=== PATIENT | female | born 1940 | race Caucasian/White ===

== ENCOUNTER 2016-11-21 02:47 | Inpatient (IN) ==
[2016-11-21] MEDS ORDERED: Ipratropium/Albuterol Neb 3 ML ONE (02:52)
[2016-11-21] MEDS ORDERED: Ipratropium/Albuterol Neb 3 ML IH ONE (02:54)
--- NOTE | 2016-11-21 03:08 | Emergency Department Note ---
Disposition Clinical Impression: Acute exacerbation of chronic obstructive airways disease Disposition: Admitted As Inpatient Condition: Good Time of Disposition: 04:21 General Adult HPI - General Stated complaint: reji Time Seen by Provider: 11/21/16 02:54 Source: patient Limitations: no limitations Nursing Notes Reviewed: Yes Vital Signs Reviewed: Yes - History of Present Illness HPI Narrative: 76-year-old female with past medical history of COPD without home oxygen presents with abrupt onset of wheezing and shortness of breath similar to prior COPD exacerbations. She states that she has had mild nonproductive cough over the last few days, but in the midst of a coughing spell became dyspneic and started wheezing. Wheezing did not resolve after the coughing resolved. No significant improvement after home beta agonist. Patient denies any lightheadedness, fever, confusion, headache, chest pain, abdominal pain, nausea or vomiting, change in urination or bowel movements. She feels that she has mild edema at her ankles that is worse with standing. She denies history of prior intubation, has been seen in the hospital multiple times for COPD. Pain Scale: 0 - Related Data Home Medications Medication Instructions Recorded Confirmed Albuterol Neb [Proventil Neb] 2.5 mg IH TID 05/26/15 05/26/15 Atorvastatin [Lipitor] 20 mg PO HS 05/26/15 05/26/15 Budesonide/Formoterol 80/4.5 2 puff IH BID 05/26/15 05/26/15 [Symbicort 80/4.5] Calcium Carbonate/Vitamin D3 1 each PO DAILY 05/26/15 05/26/15 [Calcium 500-Vit D3 400 Tablet] Cholestyramine/Aspartame 4 gm PO DAILY 05/26/15 05/26/15 [Cholestyramine Light Packet] FLUoxetine HCl [Prozac] 20 mg PO DAILY 05/26/15 05/26/15 Lansoprazole [Prevacid] 30 mg PO DAILY 05/26/15 05/26/15 Melatonin [Melatin] 3 mg PO HS 05/26/15 05/26/15 Tiotropium [Spiriva] 18 mcg IH DAILY 05/26/15 05/26/15 Previous Rx's Medication Instructions Recorded Levofloxacin [Levaquin] 500 mg PO DAILY #7 tablet 05/29/15 Azithromycin [Azithromycin 6-Tab 250 mg PO PER PKG DI #6 tab 02/02/16 Pack] predniSONE [PredniSONE] 40 mg PO DAILY #4 tablet 02/02/16 traMADol [Ultram] 50 mg PO TID #20 tablet 03/29/16 Benzonatate [Tessalon] 200 mg PO TID PRN #30 capsule 10/04/16 Levofloxacin [Levaquin] 500 mg PO DAILY #10 tablet 10/04/16 predniSONE [PredniSONE] 40 mg PO DAILY #10 tablet 10/04/16 Azithromycin [Azithromycin 6-Tab 250 mg PO PER PKG DI #6 tab 10/24/16 Pack] Guaifenesin [Guaifenesin ER] 600 mg PO BID 7 Days 10/24/16 PredniSONE [Deltasone] 40 mg PO DAILY #5 tablet 10/24/16 Allergies Allergy/AdvReac Type Severity Reaction Status Date / Time No Known Allergies Allergy Verified 10/24/16 04:47 All systems ED: reviewed and negative except as stated. Past Medical History - Past Medical History Attestation: Yes The following information was validated with the patient. 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 Cardiovascular Cardiovascular exam: Present: regular rate, normal rhythm, normal heart sounds - Abdominal Exam Abdominal exam: Present: soft, Non-Tender. Absent: tenderness, distention, guarding, rebound, rigidity - Extremities Exam Extremities exam: No pedal edema. Full range of motion. - Back Exam Back exam: Present: normal inspection, full ROM. Absent: tenderness, CVA tenderness (R), CVA tenderness (L) - Neurological Exam Neurological exam: Present: alert, oriented X3, CN II-XII intact - Psychiatric Psychiatric exam: Present: normal affect, normal mood - Skin Skin exam: Present: warm, dry, intact, normal color - General General appearance: alert, in no apparent distress Course - Reevaluation(s) Reevaluation #1: Chest x-ray negative for pneumonia. Symptoms improving after 3 DuoNeb, but patient was 84% on room air on arrival and does not have home O2. She is 92% on 3 L by nasal cannula at this time. Work of breathing has improved and patient is now able to speak 5-6 word sentences. Initially, she could only speak in 1-2 word sentences. Solu-Medrol was administered. Hospitalist was paged. Time: 03:51 Reevaluation #2: Accepted by Clarence. Time: 04:20 Vital Signs Temperature 98.3 F 11/21/16 02:53 Pulse Rate 154 11/21/16 02:53 Respiratory Rate 28 11/21/16 02:53 Blood Pressure 154/88 11/21/16 02:53 O2 Sat by Pulse Oximetry 84 11/21/16 02:53 Temperature 98.3 F 11/21/16 02:53 Pulse Rate 92 11/21/16 03:45 Respiratory Rate 20 11/21/16 04:55 Blood Pressure 139/61 11/21/16 04:55 O2 Sat by Pulse Oximetry 93 11/21/16 03:45 Oxygen Delivery Oxygen Delivery Nasal Cannula Medical Decision Making - Lab Data Result diagrams: 11/21/16 03:05 11/21/16 03:05 Lab Results 11/21/16 11/21/16 11/21/16 Range/Units 03:05 03:05 03:05 WBC 9.0 (4.3-11.1) K/mcL RBC 4.64 (3.82-4.97) M/mcL Hgb 13.3 (11.5-15.4) g/dL Hct 42.5 (35.3-44.9) % MCV 91.6 (83.0-100.0) fL MCH 28.7 (28.0-33.3) pg MCHC 31.3 L (31.6-35.5) g/dL RDW 13.3 (11.5-14.5) % Plt Count 175 (140-400) K/mcL MPV 11.5 (9.4-12.4) fL Immature Gran % 0.3 (0-4) % Seg Neutrophils % 67.1 % Lymphocytes % 16.7 % Monocytes % 7.6 % Eosinophils % 7.7 % Basophils % 0.6 % Neutrophils # 6.0 (1.6-8.9) K/mcL Lymphocytes # 1.5 (0.6-4.6) K/mcL Monocytes # 0.7 (0.0-1.3) K/mcL Eosinophils # 0.7 H (0.0-0.6) K/mcL Basophils # 0.1 (0.0-0.2) K/mcL Sodium 142 (136-145) mEq/L Potassium 3.8 (3.5-4.5) mEq/L Chloride 103 (98-109) mEq/L Carbon Dioxide 28 (19-29) mEq/L BUN 13 (7-20) mg/dL Creatinine 0.86 (0.57-1.11) mg/dL Est GFR ( Amer) > 60 (> 60) Est GFR (Non-Af Amer) > 60 (> 60) BUN/Creatinine Ratio 15 (6-26) Glucose 211 H (70-99) mg/dL Calculated Osmolality 300 (280-300) Calcium 10.0 (8.6-10.8) mg/dL Troponin I 0.01 (0-0.03) ng/mL - EKG Data EKG #1 EKG attestation: Yes I reviewed and interpreted this EKG. EKG results narrative: EKG shows sinus rhythm at 97 with normal axis and intervals. No ST elevation. There is some limitation with motion artifact without definite ST depression. No definite pathologic Q waves. No definite change when compared with 2016. Attestation Statement - Attestation Attestation: I, Jose Napier, examined this patient and my medical decision-making was reviewed with the BUTTON GRADER/PA/Advanced Practice Nurse/Resident Physician. I agree with the documented findings, disposition and treatment plan as described except to the extent set forth below. 76-year-old female presents with concerns of shortness of breath. Patient states this does feel similar to her previous COPD exacerbations. Patient reports cough that is nonproductive. Denies fever, chills, nausea, vomiting. Patient denies chest pain. On physical examination she has diffuse wheezing bilaterally and is tachycardic. She is satting 84% on room air on initial evaluation. O2 saturation improved with 3 L up to 94%. Patient was given a. All breathing treatments emergency department with significant improvement of symptoms. She is still dyspneic with conversation however and she will be admitted to the hospital for further care and evaluation. She was given [facility] hospital emergency department prior to admission.
[2016-11-21 03:12] LABS: Basophils # 0.1 K/mcL (0.0-0.2); Basophils % 0.6 %; Eosinophils # 0.7 K/mcL (0.0-0.6); Eosinophils % 7.7 %; Hematocrit 42.5 % (35.3-44.9); Hemoglobin 13.3 g/dL (11.5-15.4); Immature Granulocytes % 0.3 % (0-4); Lymphocytes # 1.5 K/mcL (0.6-4.6); Lymphocytes % 16.7 %; Mean Corpuscular HGB Conc 31.3 g/dL (31.6-35.5); Mean Corpuscular Hemoglobin 28.7 pg (28.0-33.3); Mean Corpuscular Volume 91.6 fL (83.0-100.0); Mean Platelet Volume 11.5 fL (9.4-12.4); Monocytes # 0.7 K/mcL (0.0-1.3); Monocytes % 7.6 %; Platelet Count 175 K/mcL (140-400); Red Blood Count 4.64 M/mcL (3.82-4.97); Red Cell Distribution Width 13.3 % (11.5-14.5); Segmented Neutrophils % 67.1 %
[2016-11-21] MEDS ORDERED: methylPREDNISolone 125 MG/2 ML VIAL IVP ONE (03:14)
[2016-11-21 03:25] LABS: BUN/Creatinine Ratio 15 (6-26); Blood Urea Nitrogen 13 mg/dL (7-20); Carbon Dioxide 28 mEq/L (19-29); Chloride 103 mEq/L (98-109); Glucose 211 mg/dL (70-99); Osmolality,Calculated 300 (280-300); Potassium 3.8 mEq/L (3.5-4.5); Sodium 142 mEq/L (136-145); eGFR For African Americans > 60 (> 60); eGFR For Non-African Americans > 60 (> 60)
[2016-11-21] MEDS ORDERED: Albuterol 2.5 MG/3 ML NEBULIZER IH PRN ×2 (06:18→07:36)
[2016-11-21] MEDS ORDERED: *HR* HYDROmorphone (PF) 1 MG/ML SYRINGE IVP PRN (07:35)
[2016-11-21] MEDS ORDERED: Ondansetron 4 MG/2 ML VIAL IVP PRN (07:35)
[2016-11-21] MEDS ORDERED: Acetaminophen 325 MG TABLET PO PRN (07:35)
[2016-11-21] MEDS ORDERED: *HR* HYDROcodone/Acet 5/325 mg TABLET PO PRN (07:35)
[2016-11-21] MEDS ORDERED: Naloxone 0.4 MG/ML INJ IVP PRN (07:35)
[2016-11-21] MEDS ORDERED: D5% in Water 1,000 ML IVC PRN (07:37)
[2016-11-21] MEDS ORDERED: *HR* Dextrose 50 % in Water (Syg) 50 ML SYRINGE IVP PRN (07:37)
[2016-11-21] MEDS ORDERED: Dextrose Gel 15 GM PO PRN ×2 (07:37)
--- NOTE | 2016-11-21 08:19 | Internal Med History&Physical ---
Date of Encounter: 11/21/16 Time of Encounter: 08:18 Assessment and Plan (1) Acute respiratory failure Current visit: Yes Status: Acute Secondary to COPDE Continue O2 supplement by [place] Qualifiers: Respiratory failure complication: hypoxia Qualified Code(s): J96.01 - Acute respiratory failure with hypoxia (2) Acute exacerbation of chronic obstructive airways disease Current visit: Yes Status: Acute Continue duonebs, albuterol q2prn, prednisone Start doxycycline, patient just finished a course of azithromycin Continue O2 send BNP as patient reports leg swelling (3) Diabetes mellitus Current visit: Yes Status: Chronic FS ACHS Send A1C Sliding scale insulin Qualifiers: Diabetes mellitus type: type 2 Diabetes mellitus complication status: without complication Diabetes mellitus intermediate insulin use: without intermediate designer use Qualified Code(s): E11.9 - Type 2 diabetes mellitus without complications (4) Anxiety Current visit: Yes Status: Chronic Resume home meds when confirmed Internal Medicine - H&P: HPI Chief complaint: I couldn't breathe Admitted From: Home Plans for Post Hospital Care: Home History of present illness: Ms. Poole is a 76 year old female presented to the ER wih complains of shortness of breath not relieved by her home medications She is a known history of COPD, with multiple ER presentations and admissions Reports a history of cough with white phlegm,unchanged from her chronic cough but with more persistent and severity. Associated wheezing, not relieved by using her home inhalers. Hence her presentation She denies URI symptoms, rhinorrhea, sick contacts, fever or chills, chest pain , orthopnea. She however reports ankle swelling which she started noticing since yesterday, dependent and resolves when she lays down. She denies abdominal pain, denies early satiety. She denies constipation or diarrhea, she denies changes in urinary habits She denies recent travels On presentation to the ER, she was found to be hypoxic to 84% , improved with nasal cannula, she is not on home O2, she was also diffusely wheezing, and received multiple treatments and steroids At time of review, she is in mild distress, still wheezing, and on O2 by nasal cannula CXR was unremarkable for any infiltrates, CBC and Chem unremarkable She will be admitted and managed for acute hypoxic respiratory failure secondary to COPDE and acute bronchitis She has a PMH of anxiety, DM, HLD Past Med Surg Social Fam HX - Past Medical History Medical history: arthritis, cancer, COPD, diabetes, GERD, hyperlipidemia, osteoporosis, other Psychiatric history: anxiety, depression - Past Surgical History Surgical History: cancer surgery, cholecystectomy, other - Social History Smoking Status: Former smoker Smokeless Tobacco Status: No Alcohol use: none Drug use: none - Family History Mother Living Status: Hx Family Endocrine Disorder: (DM) Internal Medicine - H&P: Meds Albuterol Neb [Proventil Neb] 2.5 mg IH TID 05/26/15 [History] Calcium Carbonate/Vitamin D3 [Calcium 500-Vit D3 400 Tablet] 1 each PO DAILY [History] FLUoxetine HCl [Prozac] 20 mg PO DAILY 05/26/15 [History] Lansoprazole [Prevacid] 30 mg PO DAILY 05/26/15 [History] Melatonin [Melatin] 3 mg PO HS 05/26/15 [History] Azithromycin [Azithromycin 6-Tab Pack] 250 mg PO PER PKG DI #6 tab 02/02/16 [Rx] predniSONE [PredniSONE] 40 mg PO DAILY #4 tablet 02/02/16 [Rx] Benzonatate [Tessalon] 200 mg PO TID PRN #30 capsule 10/04/16 [Rx] Azithromycin [Azithromycin 6-Tab Pack] 250 mg PO PER PKG DI #6 tab 10/24/16 [Rx] Guaifenesin [Guaifenesin ER] 600 mg PO BID 7 Days 10/24/16 [Rx] PredniSONE [Deltasone] 40 mg PO DAILY #5 tablet 10/24/16 [Rx] Cyanocobalamin (Vitamin B-12) [Vitamin B12] 1,000 mcg PO DAILY 11/21/16 [History ] Ipratropium/Albuterol Sulfate [Combivent Respimat Inhal [place]] 1 puff IH QID [History] Lactose-Reduced Food [Boost] 237 ml PO DAILY 11/21/16 [History] Multivitamin [One Daily Essential] 1 tab PO DAILY 11/21/16 [History] Allergies No Known Allergies Allergy (Verified 10/24/16 04:47) All Systems PM: A 10-system review of systems was performed and is negative for pertinent findings except as documented above in the HPI. - Constitutional Constitutional: as per HPI - EENT Eyes: as per HPI Ears: as per HPI Nose, mouth and throat: as per HPI - Cardiovascular Cardiovascular ROS IM: as per HPI - Respiratory Respiratory: as per HPI - Gastrointestinal Gastrointestinal: as per HPI - Genitourinary Genitourinary: as per HPI - Musculoskeletal Musculoskeletal ROS IM: as per HPI - Integumentary Integumentary IM: as per HPI - Neurological Neurological ROS: as per HPI - Psychiatric Psychiatric: as per HPI - Hematologic/Lymphatic Hematologic/Lymphatic: as per HPI - Constitutional Vitals: Temp Pulse Resp BP Pulse Ox 97.8 F 90 14 128/67 95 11/21/16 05:42 11/21/16 05:42 11/21/16 05:42 11/21/16 05:42 11/21/16 05:42 General appearance: Present: mild distress, A&O X 3, pleasant - Head Head exam: Present: atraumatic, normocephalic - Eye Eye exam: Present: PERRL, conjuntiva pink, sclera anicteric Pupils: Present: PERRL - Neck Neck exam general surgery: Present: supple, trachea midline. Absent: lymphadenopathy - Respiratory Respiratory exam: Present: wheezes, tachypnea. Absent: accessory muscle use, CTAB, rales, rhonchi - Cardiovascular Cardiovascular exam: Present: RRR, +S1, +S2. Absent: diastolic murmur, gallop, rubs, systolic murmur - GI/Abdominal GI/Abdominal exam: Present: normal bowel sounds, soft, no peritoneal signs. Absent: distended, tenderness - Extremities Exam Extremities exam: Present: warm, radial pulses palpable and symetrical. Absent : calf tenderness, cyanotic, pedal edema - Neurological Exam Neurological exam: Present: alert, CN II-XII intact, oriented X3, no focal deficits. Absent: pronater drift, facial droop, speech deficit - Skin Skin exam: Present: dry, intact Internal Med - H&P Results - Labs CBC & Chem 7: 11/21/16 03:05 11/21/16 03:05
[2016-11-21] MEDS: predniSONE 20 MG TABLET PO SCH (08:42)
[2016-11-21] MEDS: Doxycycline 100 MG CAPSULE PO SCH ×2 (08:42→21:20)
[2016-11-21] MEDS: Ipratropium/Albuterol Neb 3 ML IH SCH ×4 (10:20→22:00)
[2016-11-21] MEDS: FLUoxetine 20 MG CAPSULE PO SCH (11:38)
[2016-11-21] MEDS: Cyanocobalamin (B-12) 1,000 MCG TABLET PO SCH (11:38)
[2016-11-21] MEDS: Insulin LISPRO 300 UNITS/3 ML VIAL SQ SCH ×3 (11:39→21:20)
[2016-11-21] MEDS: Melatonin 3 MG TABLET PO SCH (21:19)
[2016-11-22] MEDS: Ipratropium/Albuterol Neb 3 ML IH SCH ×4 (04:18→22:30)
[2016-11-22] MEDS: *HR* Enoxaparin 40 MG/0.4 ML SYRINGE SQ SCH (05:54)
[2016-11-22] MEDS: Insulin LISPRO 300 UNITS/3 ML VIAL SQ SCH ×4 (07:42→22:14)
[2016-11-22] MEDS: Cyanocobalamin (B-12) 1,000 MCG TABLET PO SCH (07:43)
[2016-11-22] MEDS: predniSONE 20 MG TABLET PO SCH (07:43)
[2016-11-22] MEDS: FLUoxetine 20 MG CAPSULE PO SCH (07:43)
[2016-11-22] MEDS: Doxycycline 100 MG CAPSULE PO SCH ×2 (07:43→22:14)
[2016-11-22] MEDS: Multivit/Ca/Min/Fe/FA 1 TAB TABLET PO SCH (07:43)
[2016-11-22 07:51] LABS: Basophils % 0.3 %; Eosinophils # 0.1 K/mcL (0.0-0.6); Eosinophils % 1.1 %; Hemoglobin 12.9 g/dL (11.5-15.4); Immature Granulocytes % 0.5 % (0-4); Lymphocytes # 1.7 K/mcL (0.6-4.6); Lymphocytes % 14.2 %; Mean Corpuscular HGB Conc 32.3 g/dL (31.6-35.5); Mean Corpuscular Hemoglobin 29.5 pg (28.0-33.3); Mean Corpuscular Volume 91.5 fL (83.0-100.0); Monocytes # 0.8 K/mcL (0.0-1.3); Monocytes % 6.9 %; Platelet Count 167 K/mcL (140-400); Red Blood Count 4.37 M/mcL (3.82-4.97); Red Cell Distribution Width 13.3 % (11.5-14.5)
[2016-11-22 07:59] LABS: Hemoglobin A1C 7.9 %
[2016-11-22 08:03] LABS: BUN/Creatinine Ratio 19 (6-26); Blood Urea Nitrogen 15 mg/dL (7-20); Calcium 9.6 mg/dL (8.6-10.8); Carbon Dioxide 32 mEq/L (19-29); Chloride 102 mEq/L (98-109); Glucose 156 mg/dL (70-99); Osmolality,Calculated 296 (280-300); Potassium 3.8 mEq/L (3.5-4.5); Sodium 141 mEq/L (136-145); eGFR For African Americans > 60 (> 60); eGFR For Non-African Americans > 60 (> 60)
[2016-11-22] MEDS ORDERED: (Calcium Carbonate/Vitamin D3 [Calcium 500-Vit D3 400) PO SCH (09:00)
--- NOTE | 2016-11-22 18:30 | Internal Med Progress Note ---
Date of Encounter: 11/22/16 Time of Encounter: 15:00 - Assessment and plan (1) Acute respiratory failure with hypoxia Current Visit: Yes Status: Acute Assessment and plan: Her oxygen saturation was 84% on room air on presentation. She does not use home oxygen. Currently oxygen saturation has improved. We will check ambulatory oxygen saturation predischarge. She reports having difficulty breathing mostly at night and therefore we will obtain a nighttime oximetry study. We will treat her COPD and will supplemental oxygen by nasal cannula as needed. (2) DVT prophylaxis Current Visit: No Status: Acute Assessment and plan: We will use subcutaneous Lovenox. (3) Acute exacerbation of chronic obstructive airways disease Current Visit: Yes Status: Acute Assessment and plan: We will provide treatment with prednisone, inhaled bronchodilators and cough suppressant. (4) Diabetes mellitus Current Visit: Yes Status: Chronic Assessment and plan: Insulin sliding scale. Qualifiers: Diabetes mellitus type: type 2 Diabetes mellitus complication status: without complication Diabetes mellitus senior living insulin use: without senior living use Qualified Code(s): E11.9 - Type 2 diabetes mellitus without complications - Subjective Interval history: 11/22/2016: Patient reports shortness of breath improved from yesterday, associated with wheezing and nonproductive cough. She has been having severe shortness of breath yesterday for which she presented to the hospital and was found to be hypoxic to the low 80s. She does not use oxygen at home. She states that her breathing treatments did not help her much at home yesterday.she has recently been admitted for similar symptoms and treated with antibiotics. - Constitutional Vitals: Temp Pulse Resp BP Pulse Ox 97.9 F 85 18 123/65 92 11/22/16 14:54 11/22/16 14:54 11/22/16 16:08 11/22/16 14:54 11/22/16 16:08 General appearance: Present: mild distress, A&O X 3, pleasant - Eye Eye exam: Present: PERRL, conjuntiva pink, sclera anicteric Pupils: Present: PERRL - Respiratory Respiratory exam: Present: prolonged expiratory phase, wheezes (Bilateral expiratory wheezes.). Absent: accessory muscle use, rales, rhonchi - Cardiovascular Cardiovascular exam: Present: RRR, +S1, +S2. Absent: diastolic murmur, gallop, rubs, systolic murmur - GI/Abdominal GI/Abdominal exam: Present: normal bowel sounds, soft, no peritoneal signs. Absent: distended, tenderness - Extremities Exam Extremities exam: Present: warm, radial pulses palpable and symetrical. Absent : calf tenderness, cyanotic, pedal edema - Skin Skin exam: Present: dry, intact Internal Medicine: Result - Labs CBC & Chem 7: 11/22/16 07:11 11/22/16 07:11 Labs: Short CBC 11/22/16 Range/Units 07:11 WBC 11.7 H (4.3-11.1) K/mcL Hgb 12.9 (11.5-15.4) g/dL Hct 40.0 (35.3-44.9) % Plt Count 167 (140-400) K/mcL Neutrophils # 9.0 H (1.6-8.9) K/mcL BMP 11/22/16 07:11 Sodium 141 Potassium 3.8 Chloride 102 Carbon Dioxide 32 H BUN 15 Creatinine 0.79 Glucose 156 H Calcium 9.6 Consult Discharge Plan - Plan Referrals: Cici Greenfield CNP [Primary Care Provider] - 11/30/16 9:00 am
[2016-11-22] MEDS: Melatonin 3 MG TABLET PO SCH (22:34)
[2016-11-23] MEDS: Ipratropium/Albuterol Neb 3 ML IH SCH ×2 (04:14→10:41)
[2016-11-23 04:19] LABS: Basophils % 0.3 %; Eosinophils # 0.2 K/mcL (0.0-0.6); Eosinophils % 1.6 %; Hematocrit 40.1 % (35.3-44.9); Hemoglobin 12.7 g/dL (11.5-15.4); Immature Granulocytes % 0.6 % (0-4); Lymphocytes # 2.2 K/mcL (0.6-4.6); Lymphocytes % 20.3 %; Mean Corpuscular HGB Conc 31.7 g/dL (31.6-35.5); Mean Corpuscular Hemoglobin 28.8 pg (28.0-33.3); Mean Corpuscular Volume 90.9 fL (83.0-100.0); Mean Platelet Volume 11.7 fL (9.4-12.4); Monocytes # 0.7 K/mcL (0.0-1.3); Monocytes % 6.6 %; Neutrophils # 7.5 K/mcL (1.6-8.9); Platelet Count 173 K/mcL (140-400); Red Blood Count 4.41 M/mcL (3.82-4.97); Red Cell Distribution Width 13.2 % (11.5-14.5); Segmented Neutrophils % 70.6 %
[2016-11-23 04:31] LABS: BUN/Creatinine Ratio 21 (6-26); Blood Urea Nitrogen 16 mg/dL (7-20); Calcium 9.2 mg/dL (8.6-10.8); Carbon Dioxide 33 mEq/L (19-29); Chloride 102 mEq/L (98-109); Glucose 138 mg/dL (70-99); Osmolality,Calculated 295 (280-300); Potassium 3.7 mEq/L (3.5-4.5); Sodium 141 mEq/L (136-145); eGFR For African Americans > 60 (> 60); eGFR For Non-African Americans > 60 (> 60)
[2016-11-23] MEDS: *HR* Enoxaparin 40 MG/0.4 ML SYRINGE SQ SCH (06:06)
[2016-11-23] MEDS: Insulin LISPRO 300 UNITS/3 ML VIAL SQ SCH ×2 (07:31→11:44)
[2016-11-23] MEDS ORDERED: Cholecalciferol (D-3) 1,000 UNIT TABLET PO SCH (09:00)
[2016-11-23] MEDS: Doxycycline 100 MG CAPSULE PO SCH (09:13)
[2016-11-23] MEDS: Multivit/Ca/Min/Fe/FA 1 TAB TABLET PO SCH (09:14)
[2016-11-23] MEDS: predniSONE 20 MG TABLET PO SCH (09:15)
[2016-11-23] MEDS: FLUoxetine 20 MG CAPSULE PO SCH (09:15)
[2016-11-23] MEDS: Cyanocobalamin (B-12) 1,000 MCG TABLET PO SCH (09:15)
--- NOTE | 2016-11-23 13:52 | Discharge Summary ---
Date of Encounter: 11/23/16 Time of Encounter: 13:43 - Discharge Diagnosis (1) Acute respiratory failure with hypoxia Priority: Primary Status: Acute (2) DVT prophylaxis Priority: Secondary Status: Acute (3) Acute exacerbation of chronic obstructive airways disease Priority: Secondary Status: Acute (4) Diabetes mellitus Priority: Secondary Status: Chronic Qualifiers: Diabetes mellitus type: type 2 Diabetes mellitus complication status: without complication Diabetes mellitus intermediate card tender insulin use: without intermediate card tender use Qualified Code(s): E11.9 - Type 2 diabetes mellitus without complications - Discharge Medications Prescriptions: GuaiFENesin/Dextromethorphan [Robitussin/Dm] 10 ml PO Q6HR PRN #120 udc PRN Reason: Cough metFORMIN [Glucophage] 500 mg PO BIDWM #60 tablet predniSONE [PredniSONE] 60 mg PO DAILY #27 tablet Home Medications: Albuterol Neb [Proventil Neb] 2.5 mg IH TID 05/26/15 [History] Calcium Carbonate/Vitamin D3 [Calcium 500-Vit D3 400 Tablet] 1 tab PO DAILY [History] FLUoxetine HCl [Prozac] 60 mg PO DAILY 05/26/15 [History] Lansoprazole [Prevacid] 30 mg PO DAILY 05/26/15 [History] Melatonin [Melatin] 3 mg PO HS 05/26/15 [History] Cyanocobalamin (Vitamin B-12) [Vitamin B12] 1,000 mcg PO DAILY 11/21/16 [History ] Ipratropium/Albuterol Sulfate [Combivent Respimat Inhal [place]] 1 puff IH QID [History] Lactose-Reduced Food [Boost] 237 ml PO DAILY 11/21/16 [History] Multivitamin [One Daily Essential] 1 tab PO DAILY 11/21/16 [History] GuaiFENesin/Dextromethorphan [Robitussin/Dm] 10 ml PO Q6HR PRN #120 udc [Rx] metFORMIN [Glucophage] 500 mg PO BIDWM #60 tablet 11/23/16 [Rx] predniSONE [PredniSONE] 60 mg PO DAILY #27 tablet 11/23/16 [Rx] Allergies/Adverse Reactions: Allergies No Known Allergies Allergy (Verified 10/24/16 04:47) Date of admission: 11/21/16 11:22 Primary care physician: Cici Greenfield CNP - Patient Status Disposition: Home, Self-Care Condition: Good Functional capacity at discharge: independent ambulation Overall status at discharge: patient is progressing back to baseline - Discharge Instructions Follow Up With: Cici Greenfield CNP [Primary Care Provider] - 11/30/16 9:00 am Forms: ED Satisfaction Letter - Diet and Activity Activity: wear oxygen at night (Wear oxygen at night, while walking and if short of breath) Diet: diabetic diet (Diabetic low-sodium diet) Hospital course: Ms. Poole is a 76 year old female with past medical history significant for COPD not chronically using home oxygen who presented to the hospital for evaluation of shortness of breath. She was found to be significantly hypoxic upon presentation with oxygen saturation down to 84% on room air. Her exam revealed bilateral expiratory wheezing heard she was treated with IV steroids and referred for admission. She was admitted to the medical service and received treatment with steroids and inhaled albuterol and ipratropium. She improved. She had nocturnal oximetry study which found desaturation down to 84 % during sleep. She had an episode of 17 minutes if oxygen saturation below 88% . Based on this she will be prescribed home oxygen at nighttime. She had ambulatory oxygen saturation which was down to 86% on room air after 1 minute of leisurely walk. Her oxygen saturation remained above 90% while ambulating with nasal cannula at 2 L/m. She denies significant sputum production, chest x-ray showed no evidence of pneumonia. She did not receive antibiotics and at this point does not require oral antibiotics. Her blood glucose was elevated even though she does not take any antidiabetic medication at home. She carries a diagnosis of diabetes currently diet controlled. Due to worsening of her diabetes control secondary to steroid treatment she will be started on metformin and will be advised to follow up with her primary care physician. Her hemoglobin A1c during this admission was 7.9 with an average glucose estimated of 180. - Time Spent with Patient Total time spent providing and/or coordinating discharge services: Greater than 30 minutes - Constitutional Vitals: Temp Pulse Resp BP Pulse Ox 97.5 F L 80 16 122/77 94 11/23/16 11:00 11/23/16 11:00 11/23/16 11:00 11/23/16 11:11/23/16 12:49 General appearance: Present: mild distress, A&O X 3, pleasant - Respiratory Respiratory exam: Present: wheezes (Bilateral expiratory wheezes). Absent: accessory muscle use, rales, rhonchi - Cardiovascular Cardiovascular exam: Present: RRR, +S1, +S2. Absent: diastolic murmur, gallop, rubs, systolic murmur - GI/Abdominal GI/Abdominal exam: Present: normal bowel sounds, soft, no peritoneal signs. Absent: distended, tenderness - Neurological Exam Neurological exam: Present: CN II-XII intact, oriented X3, no focal deficits. Absent: pronater drift, facial droop, speech deficit
[2016-11-23 13:55] VITALS: BP 134/80
== END 2016-11-23 15:48 | disposition home or self-care (01) | DRG 190 ==
LOC: EMEROO 02:47 → 3ANU 02:47 → SUATTDRO 11:22
PROVIDERS: ADMIT Internal Medicine; ATTEND Internal Medicine

== ENCOUNTER 2018-07-05 20:40 | Inpatient (IN) ==
[2018-07-05 21:19] LABS: Hematocrit 39.6 % (35.3-44.9); Hemoglobin 13.5 g/dL (11.5-15.4); Mean Corpuscular HGB Conc 34.1 g/dL (31.6-35.5); Mean Corpuscular Hemoglobin 30.5 pg (28.0-33.3); Mean Corpuscular Volume 89.4 fL (83.0-100.0); Mean Platelet Volume 11.3 fL (9.4-12.4); Platelet Count 187 K/mcL (140-400); Red Blood Count 4.43 M/mcL (3.82-4.97); Red Cell Distribution Width 12.9 % (11.5-14.5)
[2018-07-05 21:25] LABS: Prothrombin Time 10.9 Seconds (9.4-12.1)
[2018-07-05 21:33] LABS: BUN/Creatinine Ratio 16 (6-26); Blood Urea Nitrogen 10 mg/dL (8-23); Calcium 9.1 mg/dL (8.6-10.3); Carbon Dioxide 32 mEq/L (23-29); Chloride 104 mEq/L (98-107); Glucose 117 mg/dL (70-105); Osmolality,Calculated 294 (280-300); Potassium 3.7 mEq/L (3.5-5.1); Sodium 142 mEq/L (136-145); eGFR For Non-African Americans > 60 (> 60)
[2018-07-05] MEDS ORDERED: Isovue-370 500 ML BOTTLE IVP ONE (21:39)
[2018-07-05 21:51] LABS: Troponin I < 0.03 ng/mL (< 0.04)
--- NOTE | 2018-07-05 22:17 | Emergency Department Note ---
Disposition Clinical Impression: Transient cerebral ischemia Qualifiers: Transient cerebral ischemia type: unspecified Qualified Code(s): G45.9 - Transient cerebral ischemic attack, unspecified Disposition: Admitted As Inpatient Condition: Fair Time of Disposition: 23:48 Neuro HPI - General Chief Complaint: ED Neuro Symptoms/Deficit Stated Complaint: Numbness to left side Time Seen by Provider: 07/05/18 20:44 Source: patient Limitations: other Nursing Notes Reviewed: Yes Vital Signs Reviewed: Yes - History of Present Illness HPI Narrative: 77 yo female presents to emergency department after sudden onset of left-sided tingling followed by weakness. The patient states the tingling started in her left hand and then she noticed it in her left leg and left face. The left leg then felt heavier than normal "like there was a block of concrete on my foot". The patient states the symptoms have almost completely resolved now and she just feels a little shaky on the left side. Patient is with her stepdaughter who was present for the event. Stepdaughter states there was no facial drooping or slurring of speech during the event. The patient has never had a stroke before. She also has no history of blood clots or heart attack. She is prediabetic and sometimes gets hypoglycemic and ate a candy bar when this began because she thought her blood sugar may be low. This occurred approximately 1 hour prior to arrival at around 7 PM. Patient denies any infectious symptoms such as fever, dysuria, cough or congestion, abdominal pain, nausea, vomiting. She is not short of breath at this time. - Related Data Home Medications: Home Medications Medication Instructions Recorded Confirmed Albuterol Neb [Proventil Neb] 2.5 mg IH TID 05/26/15 11/21/16 Calcium Carbonate/Vitamin D3 1 tab PO DAILY 05/26/15 11/21/16 [Calcium 500-Vit D3 400 Tablet] FLUoxetine HCl [Prozac] 60 mg PO DAILY 05/26/15 11/21/16 Lansoprazole [Prevacid] 30 mg PO DAILY 05/26/15 11/21/16 Melatonin [Melatin] 3 mg PO HS 05/26/15 11/21/16 Cyanocobalamin (Vitamin B-12) 1,000 mcg PO DAILY 11/21/16 11/21/16 [Vitamin B12] Ipratropium/Albuterol Sulfate 1 puff IH QID 11/21/16 11/21/16 [Combivent Respimat Inhal [place]] Lactose-Reduced Food [Boost] 237 ml PO DAILY 11/21/16 11/21/16 Multivitamin [One Daily Essential] 1 tab PO DAILY 11/21/16 11/21/16 Previous Rx's Medication Instructions Recorded GuaiFENesin/Dextromethorphan 10 ml PO Q6HR PRN #120 udc 11/23/16 [Robitussin/Dm] metFORMIN [Glucophage] 500 mg PO BIDWM #60 tablet 11/23/16 predniSONE [PredniSONE] 60 mg PO DAILY #27 tablet 11/23/16 Allergies/Adverse Reactions: Allergies Allergy/AdvReac Type Severity Reaction Status Date / Time No Known Allergies Allergy Verified 10/24/16 04:47 All systems ED: reviewed and negative except as stated. Review of Systems: As Per HPI Constitutional: Denies: fever, chills, weakness Cardiovascular: Denies: chest pain, palpitations, dyspnea on exertion Respiratory: Denies: cough, dyspnea, wheezes Gastrointestinal: Denies: abdominal pain, nausea, vomiting, diarrhea Genitourinary: Denies: dysuria, hematuria Musculoskeletal: Denies: back pain, neck pain Integumentary: Denies: rash Neurological: Reports: weakness, numbness, paresthesias Endocrine: Denies: fatigue Past Medical History - Past Medical History Medical history: Reports: arthritis, cancer, COPD, diabetes, GERD, hyperlipidemia, osteoporosis, other Surgical history: Reports: cancer surgery, cholecystectomy, other Psychiatric history: Reports: anxiety, depression 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 Normal strength and sensation of facial innervation. No deficits on the right side of the body. - General Limitations: other General appearance: alert, anxious - Head Head exam: atraumatic, normocephalic - Eye Eye exam: Present: normal appearance, PERRL, EOMI - ENT ENT exam: normal exam, normal oropharynx, mucous membranes moist - Neck Neck exam: Present: normal inspection. Absent: tenderness, lymphadenopathy - Chest Chest inspection: Present: normal inspection, symmetric chest wall rise. Absent: tenderness, rash - Respiratory Respiratory exam: Present: normal lung sounds bilaterally. Absent: wheezes - Cardiovascular Cardiovascular exam: Present: regular rate, normal rhythm - Abdominal Exam Abdominal exam: Present: soft, Non-Tender. Absent: distention, guarding, rebound, rigidity - Extremities Exam Extremities exam: Present: normal inspection. Absent: tenderness, pedal edema, calf tenderness - Neurological Exam Neurological exam: Present: alert, oriented X3, CN II-XII intact, motor sensory deficit - Psychiatric Psychiatric exam: Present: normal affect, normal mood - Skin Skin exam: Present: warm, dry, intact Course Vital Signs Temperature 97.7 F 07/05/18 21:10 Pulse Rate 89 07/05/18 21:10 Respiratory Rate 21 07/05/18 21:10 Blood Pressure 144/82 07/05/18 21:10 O2 Sat by Pulse Oximetry 95 07/05/18 21:10 Temperature 97.7 F 07/05/18 21:10 Pulse Rate 87 07/05/18 21:45 Respiratory Rate 20 07/05/18 21:45 Blood Pressure 145/63 07/05/18 21:45 O2 Sat by Pulse Oximetry 95 07/05/18 21:30 Oxygen Delivery Oxygen Delivery Room Air Neuro Symptoms/Deficit - MDM Narrative Medical decision making narrative: Patient presents approximately one hour after sudden onset of neurologic deficits including weakness and tingling of the left side of her body. A stroke alert was called shortly after arrival due to an NIH of 2. Initial head CT was negative for intracranial bleed. [facility] neurology was called through the telemedicine machine and Dr. Yanez evaluated the patient. The patient was found to still have the same deficits as initial exam but the deficits were improving. TPA was offered to the patient but the patient declined as she would rather stay here then be transported to ICU and she was already questionable about the medication. We will continue stroke workup here and plan to admit. [facility] neurology will be called again if the patient worsens or changes her mind. Patient is agreeable with this plan of care. CTA of the head and neck have been ordered. Once they have resulted we will admit the patient to the hospitalist. - Medical Records Medical records reviewed: Yes I reviewed the patient's medical records. - Lab Data Lab results reviewed: Yes I reviewed the patient's lab results. Result diagrams: 07/05/18 21:02 07/05/18 21:02 Lab Results 07/05/18 07/05/18 07/05/18 Range/Units 21:02 21:02 21:02 WBC 8.4 (4.3-11.1) K/mcL RBC 4.43 (3.82-4.97) M/mcL Hgb 13.5 (11.5-15.4) g/dL Hct 39.6 (35.3-44.9) % MCV 89.4 (83.0-100.0) fL MCH 30.5 (28.0-33.3) pg MCHC 34.1 (31.6-35.5) g/dL RDW 12.9 (11.5-14.5) % Plt Count 187 (140-400) K/mcL MPV 11.3 (9.4-12.4) fL PT 10.9 (9.4-12.1) Seconds INR 1.0 APTT 32.0 (26.0-36.0) Seconds Sodium 142 (136-145) mEq/L Potassium 3.7 (3.5-5.1) mEq/L Chloride 104 (98-107) mEq/L Carbon Dioxide 32 H (23-29) mEq/L BUN 10 (8-23) mg/dL Creatinine 0.61 (0.60-1.20) mg/dL Est GFR ( Amer) > 60 (> 60) Est GFR (Non-Af Amer) > 60 (> 60) BUN/Creatinine Ratio 16 (6-26) Glucose 117 H (70-105) mg/dL Calculated Osmolality 294 (280-300) Calcium 9.1 (8.6-10.3) mg/dL Troponin I < 0.03 (< 0.04) ng/mL - Radiology Data Radiology results reviewed: Yes I reviewed the patient's radiology results. - EKG Data EKG attestation: Yes I reviewed and interpreted this EKG. EKG results narrative: EKG obtained at 21:03 on 07/05/2018 Heart rate 90 bpm, MS interval 129, QRS duration 76, QT 372, QTC 456 Sinus rhythm without any ST segment elevations or depressions. No signs of arrhythmias. No old EKG for comparison. NIH Stroke Scale - Level of Consciousness LOC: Alert - LOC Questions LOC Questions: Answers both correctly - LOC Commands LOC Commands: Performs both correctly - Best Gaze Best Gaze: Normal - Visual Visual: No visual loss - Facial Palsy Facial Palsy: Normal - Motor Arms Motor Arm-Left: Drift, does NOT hit bed Motor Arm-Right: No drift for 10 seconds - Motor Legs Motor Leg-Left: Drift, does NOT hit bed Motor Leg-Right: No drift for 5 seconds - Limb Ataxia Limb Ataxia: Normal, No Ataxia - Sensory Sensory: Normal - Best Language Best Language: No aphasia - Dysarthria Dysarthria: Normal - Extinction and Inattention Extinction and Inattention: Normal - NIHSS Total Score NIHSS Total Score: 2 TPA Checklist - LKW: 3-4.5 hrs Add. Warnings/Precautions Patient/family understanding: The patient/family members have been counseled and understood the risk, benefit, and alternatives of treatment. Attestation Statement - Attestation Attestation: I, Jose Napier, examined this patient and my medical decision-making was reviewed with the CONTINUOUS IMPROVEMENT SPECIALIST/PA/Advanced Practice Nurse/Resident Physician. I agree with the documented findings, disposition and treatment plan as described except to the extent set forth below. 77-year-old female presents emergency Department with concerns of acute weakness in the left upper extremity and left lower extremity. Patient states she was sitting in the bleachers at a time about 1 hour prior to arrival when she had acute paresthesias to the left upper extremity which then spread to the left lower extremity and the left face. Patient denied focal weakness however family member states that she is generally able to ambulate without difficulty and needed assistance in ambulating in the emergency department. Patient denies a history of previous CVA. Patient has 4-5 weakness of the left upper extremity and left lower extremity. There is no left facial droop. We will call a stroke alert during the initial evaluation Patient CT did not show evidence of acute hemorrhage. [facility] recommended and offered TPA however after discussion of risks and benefits she declined TPA. CTA of the head and neck was negative for large vessel occlusion. Patient will be admitted to the hospital for further care and evaluation.
[2018-07-06] MEDS ORDERED: Aspirin 81 MG TAB.CHEW PO ONE (00:27)
--- NOTE | 2018-07-06 05:49 | Internal Med History&Physical ---
Date of Encounter: 07/06/18 Time of Encounter: 06:00 Internal Medicine - H&P: HPI Chief complaint: TIA Admitted From: Emergency Dept Plans for Post Hospital Care: Home History of present illness: Ms. Poole is a 77 year old female Patient presented to the emergency room with sudden onset of left-sided tingling in her hand and foot as well as left sided lip numbness. She says it started while she was watching TV, and she has never had anything like this before in the past. Her stepdaughter was present when this started and states there was no facial droop or slurring of speech. She is prediabetic and attempted to eat a candy bar in case this was due to low blood sugars but her symptoms did not improve. She presented to the emergency room about one hour after the symptom onset. She denies nausea, vomiting, chest pain, abdominal pain, diarrhea and constipation. In the emergency room patient's initial vital signs were, CBC and BMP were both within normal limits. Patient's blood sugar was 117, and initial troponin was undetectable. A stroke alert was called, initial head CT showed no acute intracranial abnormality and head and neck CT angiogram showed no intracranial proximal large artery high-grade stenosis or occlusion. There is no cervical ICA stenosis but there was mild bilateral carotid bulb atherosclerotic plaque there was a subtle 2 mm focal outpouching along the lateral aspect of the left cavernous internal carotid artery but could represent a small incidental aneurysm. Her initial NIH score in the emergency room shortly after arrival was 2. [facility] neurology was called and via telemedicine Dr. Yanez evaluated the patient, and did recommend TPA to help alleviate her symptoms. Patient declined and elected to undergo medical management here at [facility]. Upon my evaluation patient states that she still is experiencing left hand and left foot numbness. Her left lip has improved however. She mainly feels numbness in her left index finger. She denies difficulty swallowing. Past Med Surg Social Fam HX - Past Medical History Medical history: arthritis, cancer, COPD, diabetes, GERD, hyperlipidemia, osteoporosis, other Additional medical history: colon cancer Psychiatric history: anxiety, depression - Past Surgical History Surgical History: cancer surgery, cholecystectomy, other Additional surgical history: tubal,. left hip surgery. partial colectomy - Social History Smoking Status: Current every day smoker Smokeless Tobacco Status: No Alcohol use: none Drug use: none - Family History Mother Living Status: Hx Family Endocrine Disorder: (DM) Internal Medicine - H&P: Meds Albuterol Neb [Proventil Neb] 2.5 mg IH TID 05/26/15 [History] Calcium Carbonate/Vitamin D3 [Calcium 500-Vit D3 400 Tablet] 1 tab PO DAILY 05/26/15 [History] Melatonin [Melatin] 3 mg PO HS PRN 05/26/15 [History] Cyanocobalamin (Vitamin B-12) [Vitamin B12] 1,000 mcg PO DAILY 11/21/16 [History] Ipratropium/Albuterol Sulfate [Combivent Respimat Inhal [place]] 1 puff IH QID 11/21/16 [History] metFORMIN [Glucophage] 500 mg PO BIDWM #60 tablet 11/23/16 [Rx] Allergy/AdvReac Type Severity Reaction Status Date / Time No Known Allergies Allergy Verified 10/24/16 04:47 All Systems PM: A 10-system review of systems was performed and is negative for pertinent findings except as documented above in the HPI. - Constitutional Vitals: Temp Pulse Resp BP Pulse Ox 98.4 F 79 16 149/85 98 07/06/18 05:20 07/06/18 05:20 07/06/18 05:20 07/06/18 05:20 07/06/18 05:20 General appearance: Present: cooperative, A&O X 3, pleasant, no acute distress, answers questions appropriately Exam: - - Head Head exam: Present: normal inspection - Eye Eye exam: Present: EOMI, normal appearance, PERRL - Neck Neck exam general surgery: Present: full ROM - Respiratory Respiratory exam: Present: CTAB. Absent: chest wall tenderness, decreased breath sounds, rales, respiratory distress, rhonchi, wheezes - Cardiovascular Cardiovascular exam: Present: RRR. Absent: diastolic murmur, systolic murmur - GI/Abdominal GI/Abdominal exam: Present: soft, tenderness. Absent: normal bowel sounds - Extremities Exam Extremities exam: Present: normal inspection, warm, radial pulses palpable and symmetrical. Absent: calf tenderness, pedal edema, tenderness Additional comments: Arthritic changes to hands bilaterally - Neurological Exam Neurological exam: Present: CN II-XII intact, oriented X3, no focal deficits, strengths equal and symetr throughout. Absent: motor sensory deficit, pronater drift, facial droop, speech deficit - Skin Skin exam: Present: dry, normal color, warm Internal Med - H&P Results - Labs CBC & Chem 7: 07/05/18 21:02 07/05/18 21:02 Labs: Short CBC 07/05/18 Range/Units 21:02 WBC 8.4 (4.3-11.1) K/mcL Hgb 13.5 (11.5-15.4) g/dL Hct 39.6 (35.3-44.9) % Plt Count 187 (140-400) K/mcL BMP 07/05/18 21:02 Sodium 142 Potassium 3.7 Chloride 104 Carbon Dioxide 32 H BUN 10 Creatinine 0.61 Glucose 117 H Calcium 9.1 Cardiac Enzymes 07/05/18 Range/Units 21:02 Troponin I < 0.03 (< 0.04) ng/mL - Impressions ITS Impressions Head CT 07/05/18 20:52 IMPRESSION: No acute intracranial abnormality. Findings were discussed with Dr. Richard of the [facility] emergency department at 9:14 pm on 07/05/2018. D/ / Terence Lowery MD / Terence Lowery MD Interpreting Provider: Terence Lowery MD Head CTA 07/05/18 21:39 IMPRESSION: 1. No intracranial proximal large artery high-grade stenosis or occlusion. 2. No cervical ICA stenosis per NASCET criteria. Mild bilateral carotid bulb atherosclerotic plaque. 3. Subtle 2 mm focal outpouching along the lateral aspect of the left cavernous internal carotid artery could represent a small incidental aneurysm. D/ / Tray Sessions / Tray Sessions Interpreting Provider: Tray Sessions Neck CTA 07/05/18 21:39 IMPRESSION: 1. No intracranial proximal large artery high-grade stenosis or occlusion. 2. No cervical ICA stenosis per NASCET criteria. Mild bilateral carotid bulb atherosclerotic plaque. 3. Subtle 2 mm focal outpouching along the lateral aspect of the left cavernous internal carotid artery could represent a small incidental aneurysm. D/ / Tray Sessions / Tray Sessions Interpreting Provider: Tray Sessions - Assessment and plan (1) Transient cerebral ischemia Current Visit: Yes Status: Acute Assessment and plan: Initial imaging negative for acute stroke. Patient still experiencing left- sided numbness, but strength appears to be equal bilaterally. MRI in the morning Obtain Carotid Dopplers Echocardiogram PT OT consult Qualifiers: Transient cerebral ischemia type: unspecified Qualified Code(s): G45.9 - Transient cerebral ischemic attack, unspecified (2) Diabetes mellitus Current Visit: No Status: Chronic Assessment and plan: Patient is not an insulin-dependent diabetic, takes metformin at home. Diabetic diet Low-dose insulin sliding scale as needed Monitor sugars with meals and at night Hold home meds Qualifiers: Diabetes mellitus type: type 2 Diabetes mellitus fpc insulin use: without ocean transportation intermediary use Diabetes mellitus complication status: without c omplication Qualified Code(s): E11.9 - Type 2 diabetes mellitus without c omplications (3) DVT prophylaxis Current Visit: No Status: Acute Assessment and plan: SCDs - Time Spent With Patient Total time spent is greater than 50% in coordination of care (as documented) at patient's floor/unit and/or counseling patient: Greater than 35 minutes
[2018-07-06] MEDS ORDERED: *HR* Dextrose 50 % in Water (Syg) 50 ML SYRINGE IVP PRN (06:58)
[2018-07-06] MEDS ORDERED: D5% in Water 1,000 ML IVC PRN (06:58)
[2018-07-06] MEDS ORDERED: Dextrose Gel 15 GM/37.5 ML TUBE PO PRN ×2 (06:58)
[2018-07-06] MEDS: Insulin LISPRO 300 UNITS/3 ML VIAL SQ SCH ×4 (10:27→23:06)
--- NOTE | 2018-07-06 14:10 | Neurology - Consult Note ---
Date of Encounter: 07/06/18 Time of Encounter: 14:05 Assessment and Plan (1) Right thalamic infarction Current Visit: Yes Status: Acute I believe that the right thalamic infarct is likely due to her risk factors of untreated hypertension, hyperglycemia, and cigarette smoking. I am not certain about her lipid profile. I do however, believe that prognosis for full recovery is excellent. I agree with aspirin 81 mg daily. I do not at all feel that the small cavernous aneurysm is at all symptomatic. I would simply choose to review images again in 6 months to be sure that it is not changed. Also recommend follow-up with her primary care provider for aggressive management of her risk factors after discharge. Smoking cessation is paramount. I will reevaluate her at your request. History of Present Illness HPI: Ms. Poole is a 77 year old female who was seen and examined for neurologic consultation at the request of the hospitalist group secondary to an acute right thalamic infarct. Patient states that yesterday evening she was watching a school basketball game when she experienced sudden paresthesias of the left face the left hand and the left leg below the knee. She also felt a bit clumsy of the left upper extremity. She denies headache, denies confusion, denies speech difficulty. Denies any visual changes. She is not treated for hypertension however since admission her blood pressures have been somewhat elevated with systolic readings in the 140s to 150s. She is also a "borderline" diabetic. She also said smokes cigarettes. Currently she is alert oriented and stable. MRI scan of the brain revealed an acute diffusion deficit in the right thalamus. MRI scan of the brain also revealed scattered deep white matter hyperintensities insistent with chronic ischemic events. CBC with differential was normal, electrolyte panel was essentially normal. Glucose was elevated at 1 17. CTA scan also revealed a small 2 mm outpouching of the cavernous internal carotid artery which might be consistent with a small aneurysm. This is not however symptomatic. Nonstenotic plaquing was identified in the carotid bulbs bilaterally. No evidence of flow-limiting stenosis is present. Past Med Surg Social Fam HX - Past Medical History Medical history: arthritis, cancer, COPD, diabetes, GERD, hyperlipidemia, osteoporosis, other Additional medical history: colon cancer Psychiatric history: anxiety, depression - Past Surgical History Surgical History: cancer surgery, cholecystectomy, other Additional surgical history: tubal,. left hip surgery. partial colectomy - Social History Smoking Status: Current every day smoker Smokeless Tobacco Status: No Alcohol use: none Drug use: none - Family History Mother Living Status: Hx Family Endocrine Disorder: (DM) Medications and Allergies Albuterol Neb [Proventil Neb] 2.5 mg IH TID 05/26/15 [History] Calcium Carbonate/Vitamin D3 [Calcium 500-Vit D3 400 Tablet] 1 tab PO DAILY 05/26/15 [History] Melatonin [Melatin] 3 mg PO HS PRN 05/26/15 [History] Cyanocobalamin (Vitamin B-12) [Vitamin B12] 1,000 mcg PO DAILY 11/21/16 [History] Ipratropium/Albuterol Sulfate [Combivent Respimat Inhal [place]] 1 puff IH QID 11/21/16 [History] metFORMIN [Glucophage] 500 mg PO BIDWM #60 tablet 11/23/16 [Rx] Allergy/AdvReac Type Severity Reaction Status Date / Time No Known Allergies Allergy Verified 10/24/16 04:47 All Systems: The remainder of the systems were reviewed and are negative Review of Systems: The balance of the systems review is negative. Physical Examination - Vital Signs Vital Signs: Initial Vital Signs Temp Pulse Resp BP Pulse Ox 97.7 F 89 21 144/82 95 07/05/18 21:10 07/05/18 21:10 07/05/18 21:10 07/05/18 21:10 07/05/18 21:10 - Exam Exam: General Examination: *CONSTITUTIONAL: normal *GENERAL APPEARANCE OF PATIENT appears healthy and well groomed *EYES: pupils equal, round, reactive to light and accommodation, conjunctiva clear without masses or ulcerations, fundi normal. *CARDIOVASCULAR no peripheral edema, distal temperature normal, dorsalis pedis pulses normal. Refer to vital signs Musculoskeletal: *GAIT AND STATION normal, with normal Romberg testing, no abnormalities such as broad base gait or spasticity *ASSESSMENT OF MUSCLE STRENGTH IN THE UPPER AND LOWER EXTREMITIES deltoid, bicep, tricep, etcher aircraft strength, hip flexors ,anterior tibialis, dorsoflexion of the foot normal. *MUSCLE TONE IN THE UPPER AND LOWER EXTREMITIES normal. No abnormal movements, fasciculations or atrophy identified. Neurological: *ORIENTATION to time and place *RECURRENT AND REMOTE MEMORY intact *ATTENTION AND CONCENTRATION are normal *LANGUAGE FUNCTION no significant aphasia or dysarthia was noted. *FUND OF KNOWLEDGE aware of current events, past history, vocabulary *MENTAL attention span and concentration normal. *CN II optic fundi were normal, no papilledema noted. *CN III,IV, PERRLA extraocular eye movements were full, no nystagmus and no ptosis noted. *CN V shows normal sensation and jaw opens symmetrically. *CN VII shows normal facial movement symmetrically, upper and lower bilaterally. *CN VIII shows no significant hearing loss on examination in the office. *CN IX,,X palate elevated symmetrically and normal gag reflex was noted. *CN XI normal strength in the sternocleidomastoid muscles, symmetrical shoulder shrugging. *CN XII tongue protruded in the midline, with normal strength and movement. *SENSORY EXAMINATION mild hypoesthesia of the left face left hand and around the left ankle. All other sensory modalities are normal. *REFLEXES: deep tendon reflexes were normal and symmetrical , grade 2/4 diffusely, no pathological reflexes were noted. *CEREBELLAR TESTING normal finger to nose, heel/knee/stout, and tandem walk. *PAIN LEVEL 0 Results - Laboratory Findings CBC and BMP: 07/05/18 21:02 07/05/18 21:02 Abnormal lab findings: Abnormal lab results Carbon Dioxide 32 mEq/L (23-29) H 07/05/18 21:02 Glucose 117 mg/dL (70-105) H 07/05/18 21:02 POC Glucose 118 mg/dL (70-99) H 07/05/18 20:52 Consult Discharge Plan - Plan Referrals: NONE,PCP [Primary Care Provider] -
[2018-07-06] MEDS: Ipratropium/Albuterol Neb 3 ML IH PRN (14:52)
--- NOTE | 2018-07-06 15:33 | Event Note ---
Date of Encounter: 07/06/18 Time of Encounter: 15:31 Patient seen and examined at bedside. Patient states that she feels about the same as presentation. She continued to complain of numbness in her left hand and left ankle Neuro exam reveals 5 out of 5 strength in the upper and lower extremities bilaterally. Sensory deficits to the left distal upper and lower extremity. Cranial nerves are intact. No other focal deficits noted Assessment and plan #1: CVA: MRI reveals a 5 mm thalamic infarct. Likely cause of patient's sympto ms. Weekly due to underlying tobacco abuse, hypertension, diabetes. Recommend aggressive risk factor modification, have started lisinopril for hypertension continue sliding scale insulin and close outpatient follow-up. Did strongly encourage tobacco cessation. Neurology consult. PT OT consult.
[2018-07-07] MEDS: Ipratropium/Albuterol Neb 3 ML IH PRN (04:42)
[2018-07-07] MEDS ORDERED: Ipratropium/Albuterol Neb 3 ML IH PRN (04:56)
--- NOTE | 2018-07-07 08:06 | Internal Med Progress Note ---
Hospitalist Progress Note - Encounter Date of Encounter: 07/07/18 Time of Encounter: 09:00 - Subjective Interval History: awake, cont to have tingling in left cheek and chin, numbness around left ankle and in left fingers. no slurred speech, changes in vision, gaytan or trouble swallowing. no cp ,pressure, palpitations. - Exam Vitals: Temp Pulse Resp BP Pulse Ox 97.6 F 88 18 124/79 96 07/07/18 05:53 07/07/18 05:53 07/07/18 05:53 07/07/18 05:53 07/07/18 05:53 Exam: gen- alert, awake,appears stated age eyes- pupils equal round , eom intact cv- reg rate and rhythm, normal s1,s2, no murmurs appreciated, no le edema lungs- ctabl, no wheezing, rhonchi or crackles, normal resp effort on ra abd- soft, non tender, non distended, + bs neuro- AAOx3, CN grossly intact, UE strength 5/5 bl and LE strength 5/5 bilateral, decreased sensation to light touch left lateral foot when compared to right foot, no dysarthria. - Assessment and Plan (1) Right thalamic infarction Current Visit: Yes Status: Acute Assessment and Plan: as confirmed on MRI pt was stroke alert on admit, [facility] rec for tpa which she refused, CTA without stenoses or occlusion that would warrant intervention LICA bulb incidental 2mm outpouching reviewed by Neurology, may be possible ic idental small aneurysm, not causing symptoms, no intervention required CUS minla bilateral stenoses echo unremarkable, no PFO, normal function PT/OT rec for outpt services Plan - cont asa -begin statin, though she is 77 she has 46% 10y CVD risk and with acute cva begin high intensity statin- atorvastatin 40 mg hs -A1C pending, will need to cont diabetes management with pcp outpt, currently at home takes metformin, did have dye images this admit, covered with SSI -Will require BP treatment upon discharge as she is hypertensive on no treatment outpt -I have reviewed previous providers notes and plan, I am holding Lisinipril given she is within the window of permissive htn, prn labetalol ordered, bp currently normotensive, cont to monitor BP, will determine bp control needed tomorrow when she is >48hrs out from acute cva -will need outpt pt/ot, SW consulted (2) HTN (hypertension) Current Visit: Yes Status: Chronic Assessment and Plan: No prior hx, not on treatment BPs 140-150s sbp on admit currently normotensive on no med Plan: -see above -outpt fu (3) Diabetes mellitus Current Visit: No Status: Chronic Assessment and Plan: On metformin at home Plan: -cont SSI -holding metformin (dye imaging) -A1C pending -fu outpt (4) COPD (chronic obstructive pulmonary disease) Current Visit: Yes Status: Chronic Assessment and Plan: stable Plan: -prn nebs -tobacco cessation recommended (5) Tobacco abuse Current Visit: Yes Status: Chronic Assessment and Plan: cessation counselling declines patch at this time Plan: -reassess desire for patch upon dc DVT Prophylaxis: scds - Time Spent with Patient Total time spent is greater than 50% in coordination of care (as documented) at patient's floor/unit and/or counseling patient: 25 - 35 minutes Plan of Care Discussed with: patient Internal Medicine: Result - Labs CBC & Chem 7: 07/05/18 21:02 07/07/18 07:06 - ABG Interpretation ABG results: PT/INR, D-dimer PT 10.9 Seconds (9.4-12.1) 07/05/18 21:02 - Impressions Impressions Echocardiogram 07/06/18 06:55 Impressions: LVEF 55%. Normal LV chamber size, wall thickness and function. Normal left ventricular diastolic function. Normal right ventricular structure and function. No evidence of PFO with agitated saline contrast. Mild eccentric tricuspid regurgitation. No evidence of pulmonary hypertension. Left Ventricular Wall Motion: Rest Echo Findings All wall segments showed normal motion. Findings: Study Quality * Technically adequate exam. ECG Findings * Normal sinus rhythm. Left Ventricle * LVEF 55%. * Normal LV chamber size, wall thickness and function. * Normal left ventricular diastolic function. Right Ventricle * Normal right ventricular structure and function. Left Atrium * Normal left atrial size. Right Atrium * Normal right atrial size. Interatrial Septum * No evidence of PFO with agitated saline contrast. Aortic Valve * Aortic valve not well visualized. * No aortic regurgitation. * No aortic stenosis. * Mildly sclerotic aortic valve leaflets. Mitral Valve * Normal mitral valve structure. * No mitral stenosis. * Trace mitral regurgitation. Tricuspid Valve * Mild eccentric tricuspid regurgitation. * No evidence of pulmonary hypertension. * No tricuspid stenosis. * Normal tricuspid valve structure. Pulmonic Valve * No pulmonic regurgitation. Aorta * Normally sized aortic root. Pericardium * The pericardium appears normal. IVC * Normal IVC dimensions and inspiratory collapse. Pulmonary Artery * Normal visualized portions of the main pulmonary artery. Brain MRI 07/06/18 06:56 IMPRESSION: 1. Acute 5 mm right thalamic infarct. 2. No acute intracranial hemorrhage. 3. Mild chronic small vessel ischemic changes. The findings were sent to the Radiology Results Communication [facility] at 11:38 am on 07/06/2018to be communicated to a licensed caregiver. D/ / 07/06/2018 11:48:55 Bernardino Cannon MD / vanessa Interpreting Provider: Bernardino Cannon MD Consult Discharge Plan - Plan Referrals: Cici Greenfield MEDICAL SECRETARY TEACHER [Advanced Practice Nurse] - (Follow-up referral made, physicians office will follow-up with the patient by phone. ) (2) HTN (hypertension) Qualifiers: Hypertension type: unspecified Qualified Code(s): I10 - Essential (primary) hypertension (3) Diabetes mellitus Qualifiers: Diabetes mellitus type: type 2 Diabetes mellitus rodent exterminator insulin use: without rodent exterminator use Diabetes mellitus complication status: without complication Qualified Code(s): E11.9 - Type 2 diabetes mellitus without c omplications (4) COPD (chronic obstructive pulmonary disease) Qualifiers: COPD type: unspecified COPD Qualified Code(s): J44.9 - Chronic obstructive pulmonary disease, unspecified
[2018-07-07] MEDS: Aspirin 81 MG TAB.CHEW PO SCH (08:14)
[2018-07-07 08:20] LABS: BUN/Creatinine Ratio 13 (6-26); Blood Urea Nitrogen 9 mg/dL (8-23); Calcium 9.2 mg/dL (8.6-10.3); Carbon Dioxide 32 mEq/L (23-29); Chloride 100 mEq/L (98-107); Glucose 108 mg/dL (70-105); Osmolality,Calculated 289 (280-300); Potassium 3.6 mEq/L (3.5-5.1); Sodium 140 mEq/L (136-145); eGFR For Non-African Americans > 60 (> 60)
[2018-07-07] MEDS: Insulin LISPRO 300 UNITS/3 ML VIAL SQ SCH ×4 (08:20→20:13)
[2018-07-07 08:21] LABS: Chol/HDL Ratio 2.5 (0-4.9)
[2018-07-07] MEDS: Ipratropium/Albuterol Neb 3 ML IH SCH ×3 (10:06→22:11)
[2018-07-07] MEDS ORDERED: *HR* Labetalol 20 MG/4 ML SYRINGE IVP PRN (10:35)
[2018-07-08] MEDS: Ipratropium/Albuterol Neb 3 ML IH SCH ×2 (03:29→10:13)
--- NOTE | 2018-07-08 07:50 | Internal Med Progress Note ---
Hospitalist Progress Note - Encounter Date of Encounter: 07/08/18 - Exam Vitals: Temp Pulse Resp BP Pulse Ox 98.1 F 89 16 129/77 95 07/08/18 06:49 07/08/18 06:49 07/08/18 06:49 07/08/18 06:49 07/08/18 05:47 - Time Spent with Patient Total time spent is greater than 50% in coordination of care (as documented) at patient's floor/unit and/or counseling patient: Internal Medicine: Result - Labs CBC & Chem 7: 07/05/18 21:02 07/07/18 07:06 Labs: BMP 07/07/18 07:06 Sodium 140 Potassium 3.6 Chloride 100 Carbon Dioxide 32 H BUN 9 Creatinine 0.68 Glucose 108 H Calcium 9.2 - ABG Interpretation ABG results: PT/INR, D-dimer PT 10.9 Seconds (9.4-12.1) 07/05/18 21:02 Consult Discharge Plan - Plan Referrals: Cici Greenfield STEREO OPERATOR [Advanced Practice Nurse] - (Follow-up referral made, physicians office will follow-up with the patient by phone. )
[2018-07-08] MEDS ORDERED: FLUoxetine 20 MG CAPSULE PO SCH (09:00)
[2018-07-08] MEDS: Aspirin 81 MG TAB.CHEW PO SCH (09:55)
[2018-07-08] MEDS: Insulin LISPRO 300 UNITS/3 ML VIAL SQ SCH ×2 (09:56→12:12)
--- NOTE | 2018-07-08 11:27 | Discharge Summary ---
<Gege Richard R - Last Filed: 07/08/18 17:30> - NOTES TO OUTPATIENT PROVIDER Notes to Outpatient Provider: Pt found to have an acute CVA. Statin was increased and Lisinopril was started for BP control. Needs referred to outpatient Pt/OT Orders not resulted at time of discharge: Pending orders 07/07/18 07:06 Hgb A1C AM 0400 Date of Encounter: 07/08/18 Time of Encounter: 09:30 - Discharge Diagnosis (1) Right thalamic infarction Priority: Primary Status: Acute (2) COPD (chronic obstructive pulmonary disease) Priority: Secondary Status: Chronic Qualifiers: COPD type: unspecified COPD Qualified Code(s): J44.9 - Chronic obstructive pulmonary disease, unspecified (3) Tobacco abuse Priority: Secondary Status: Chronic (4) Diabetes mellitus Priority: Secondary Status: Chronic Qualifiers: Diabetes mellitus type: type 2 Diabetes mellitus terminal clerk insulin use: without chcf use Diabetes mellitus complication status: without complication Qualified Code(s): E11.9 - Type 2 diabetes mellitus without complications Hospital course: Patient initially reported to the emergency department 3 days ago with symptoms suggestive of a TIA including left hand, left leg, and left facial tingling with associated weakness of the left hand and left leg. Patient has a past medical history of COPD, diabetes, hyperlipidemia, cancer but had never had a stroke before. The symptoms were resolving and patient was initially offered TPA the emergency department after evaluation by neurology at [facility] the patient refused. Patient was subsequently found to have an infarct of the right thalamus. Evaluation by neurology was for medical management of her hypertension and diabetes along with smoking cessation. The patient had no further complications during her hospital stay and her hypertension was well controlled with lisinopril 10 mg every day. She will be discharged home with this medication along with her home medications and PT/OT follow-up at home for her further treatment for her residual weakness. She also has neurology and primary care follow-up already scheduled. Discharge discussed with: patient, nurse - Time Spent with Patient Total time spent providing and/or coordinating discharge services: - Discharge Medications Prescriptions: Aspirin 81 mg PO DAILY #30 tab.chew Atorvastatin [Lipitor] 40 mg PO HS #30 tablet Lisinopril [Zestril] 10 mg PO DAILY #30 tablet Home Medications: Melatonin [Melatin] 3 mg PO HS PRN 12//15 [History] Cyanocobalamin (Vitamin B-12) [Vitamin B12] 1,000 mcg PO DAILY 11/21/16 [History] Ipratropium/Albuterol Sulfate [Combivent Respimat Inhal [place]] 1 puff IH BID [History] Calcium Carbonate/Vitamin D3 [Qc Calcium 600-Vit D3 400 Tab] 1 each PO DAILY 07/06/18 [History] FLUoxetine HCl [Prozac] 60 mg PO QAM 07/06/18 [History] Gabapentin [Neurontin] 300 mg PO HS 07/06/18 [History] Ipratropium/Albuterol Neb [Duoneb] 3 ml IH Q6H PRN 07/06/18 [History] Omeprazole [PriLOSEC] 20 mg PO DAILY 07/06/18 [History] Aspirin 81 mg PO DAILY #30 tab.chew 07/08/18 [Rx] Atorvastatin [Lipitor] 40 mg PO HS #30 tablet 07/08/18 [Rx] Lisinopril [Zestril] 10 mg PO DAILY #30 tablet 07/08/18 [Rx] metFORMIN [Glucophage] 500 mg PO BIDWM #60 tablet 07/08/18 [Rx] Allergies/Adverse Reactions: Allergy/AdvReac Type Severity Reaction Status Date / Time No Known Allergies Allergy Verified 07/06/18 16:13 Date of admission: 07/06/18 15:29 Primary care physician: PCP NONE Consults: 07/06/18 06:56 Consult to Occupational Therapy [CONS] Routine Comment: Evaluate, develop and implement POC Reason for Consult: TIA, left sided numbness in hand and foot. Does patient have active BEDREST order?: No Is patient medically & hemodynamically stable?: Yes Consult to Physical Therapy [CONS] Routine Comment: Evaluate, develop and implement POC Reason for Consult: TIA, left sided numbness in hand and foot. Does patient have active BEDREST order?: No Is patient medically & hemodynamically stable?: Yes 07/06/18 12:01 Consult to Neurology [CONS] Routine Consulting Provider: Neurology [facility] Reason for Consult: CVA Call Completed: Yes 07/07/18 08:01 Consult to Case Management [CONS] Routine Comment: Discharging clinician: Gege Richard - Constitutional Vitals: Temp Pulse Resp BP Pulse Ox 97.8 F 93 18 141/83 88 07/08/18 10:32 07/08/18 10:32 07/08/18 10:32 07/08/18 10:32 07/08/18 10:13 General appearance: Present: cooperative, A&O X 3, pleasant, no acute distress, answers questions appropriately Exam: Constitutional -alert, in no apparent distress HEENT - PERRL, EOMI, CN 2-12 grossly intact Cardio - RRR no murmurs Resp - CTA bilaterally without wheezing, rhonchi or rales Abd - soft and nontender to palpation MSK - nontender to palpation of extremities without noticeable edema Skin - no visible rashes. Ecchymosis to RLE noted to be relatively unchanged from admission Neuro - LUE and LLE 4/5 strength. RUE and RLE 5/5 strength. Slightly decreased sensation of the left extremities. No ataxia noted. - Patient Status Disposition: Home, Self-Care Condition: Good Functional capacity at discharge: independent ambulation Overall status at discharge: patient is progressing back to baseline - Discharge Instructions Instructions: Lisinopril (By mouth), Aspirin (By mouth), Atorvastatin (By mouth), How to Stop Smoking (DC), Diabetes Mellitus Type 2 in Adults (DC), Chronic Obstructive Pulmonary Disease (DC), Ischemic Stroke (DC), Hypertension (DC) Follow Up With: Cici Greenfield CNP [Advanced Practice Nurse] - 07/11/18 9:00 am (Follow-up referral made, physicians office will follow-up with the patient by phone. ) Emir Pate, [Partnered Physician] - (submitted web request for Dr. Pate office to call patient with hospital follow up apt) - Diet and Activity Activity: increase activity as tolerated Diet: diabetic diet, low fat, low cholesterol, low salt diet <Debi Calderon - Last Filed: 07/08/18 18:08> Orders not resulted at time of discharge: Pending orders 07/05/18 21:03 ECG 12 lead ECG [ECG] Stat Date of Encounter: 07/08/18 - Discharge Diagnosis (1) Right thalamic infarction Status: Acute (2) HTN (hypertension) Status: Chronic Qualifiers: Hypertension type: unspecified Qualified Code(s): I10 - Essential (primary) hypertension (3) Diabetes mellitus Status: Chronic Qualifiers: Diabetes mellitus type: type 2 Diabetes mellitus terminal clerk insulin use: without terminal clerk use Diabetes mellitus complication status: without complication Qualified Code(s): E11.9 - Type 2 diabetes mellitus without complications (4) COPD (chronic obstructive pulmonary disease) Status: Chronic Qualifiers: COPD type: unspecified COPD Qualified Code(s): J44.9 - Chronic obstructive pulmonary disease, unspecified (5) Tobacco abuse Status: Chronic Hospital course: Ms. Poole is a 77 year old female - Time Spent with Patient Total time spent providing and/or coordinating discharge services: Date of admission: 07/06/18 15:29 Primary care physician: PCP NONE Consults: 07/06/18 06:56 Consult to Occupational Therapy [CONS] Routine Comment: Evaluate, develop and implement POC Reason for Consult: TIA, left sided numbness in hand and foot. Does patient have active BEDREST order?: No Is patient medically & hemodynamically stable?: Yes Consult to Physical Therapy [CONS] Routine Comment: Evaluate, develop and implement POC Reason for Consult: TIA, left sided numbness in hand and foot. Does patient have active BEDREST order?: No Is patient medically & hemodynamically stable?: Yes 07/06/18 12:01 Consult to Neurology [CONS] Routine Consulting Provider: Neu[facility] Reason for Consult: CVA Call Completed: Yes 07/07/18 08:01 Consult to Case Management [CONS] Routine Comment: - Constitutional Vitals: Temp Pulse Resp BP Pulse Ox 98.0 F 88 18 133/61 88 07/08/18 14:29 07/08/18 14:29 07/08/18 14:29 07/08/18 14:29 07/08/18 10:13 - Attending Attestation I examined this patient and my medical decision-making was reviewed with the Resident Physician Jose Manuel. I agree with the documented findings, disposition and treatment plan as described except to the extent set forth below. Ms Poole was admitted with acute stroke. She is medically stable for dc to home with outpt fu and outpt pt ot awake, pleasant, eager for dc. no gaytan, vision changes, chest pain. no new numbness/tingling or weakness. unchanged facial left hand and left ankle numbness. discharge plan discussed in detail. gen- alert, awake,appears stated age cv- reg rate and rhythm, normal s1,s2, no murmurs appreciated, no le edema lungs- ctabl, no wheezing, rhonchi or crackles, normal resp effort on ra neuro- AAOx3, CN grossly intact, UE strength 5/5 bl and LE strength 5/5 bilateral, no dysarthria. Right Thalamic infarct pt was stroke alert on admit, [facility] rec for tpa which she refused, CTA without stenoses or occlusion that would warrant intervention LICA bulb incidental 2mm outpouching reviewed by Neurology, may be possible icidental small aneurysm, not causing symptoms, no intervention required CUS minla bilateral stenoses -asa, statin, outpt neuro and outpt pt ot -bp control, stated acei HTN- fu outpt for further management, acei started once out window for permissive htn DM- may resume home metformin in am, fu with pcp for close monitoring for risk factor optimization tobacco dependence- cessation education provided, declined patch further diagnoses and plan as noted by resident time spent on discharge 45 min
[2018-07-08 13:15] LABS: Estimated Average Glucose 134 mg/dl; Hemoglobin A1C 6.3 %
[2018-07-08 14:30] VITALS: BP 133/61
[2018-07-08] MEDS ORDERED: Gabapentin 300 MG CAPSULE PO SCH (21:00)
--- NOTE | 2018-07-09 14:19 | Electrocardiograph Report ---
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
== END 2018-07-08 15:37 | disposition home or self-care (01) | DRG 65 ==
LOC: 2NENU 20:40 → EMEROOARM 20:40 → SUATTDRO 23:40 → 2NENU 07-06 01:00 → SUATTDRO 07-06 15:29
PROVIDERS: ADMIT Pediatrics; ATTEND Internal Medicine

== ENCOUNTER 2019-03-02 10:43 | Observation (INO) ==
[2019-03-02] MEDS ORDERED: Ipratropium/Albuterol Neb 3 ML IH ONE ×2 (11:20→12:50)
[2019-03-02] MEDS ORDERED: methylPREDNISolone 125 MG/2 ML VIAL IVP ONE (11:33)
[2019-03-02 11:56] LABS: Basophils % 0.4 %; Eosinophils # 0.1 K/mcL (0.0-0.6); Eosinophils % 1.8 %; Hematocrit 37.5 % (35.3-44.9); Hemoglobin 12.1 g/dL (11.5-15.4); Immature Granulocytes % 0.3 % (0-4); Lymphocytes # 1.1 K/mcL (0.6-4.6); Lymphocytes % 14.3 %; Mean Corpuscular HGB Conc 32.3 g/dL (31.6-35.5); Mean Corpuscular Hemoglobin 28.9 pg (28.0-33.3); Mean Corpuscular Volume 89.7 fL (83.0-100.0); Mean Platelet Volume 10.9 fL (9.4-12.4); Monocytes # 0.6 K/mcL (0.0-1.3); Monocytes % 7.2 %; Neutrophils # 6.1 K/mcL (1.6-8.9); Platelet Count 183 K/mcL (140-400); Red Blood Count 4.18 M/mcL (3.82-4.97); Red Cell Distribution Width 12.8 % (11.5-14.5)
[2019-03-02 12:06] LABS: INR 1.1; Prothrombin Time 12.1 Seconds (9.4-12.1)
[2019-03-02 12:09] LABS: Activated Partial Thrombo Time 29.5 Seconds (26.0-36.0)
[2019-03-02 12:15] LABS: BUN/Creatinine Ratio 15 (6-26); Blood Urea Nitrogen 10 mg/dL (8-23); Carbon Dioxide 29 mEq/L (23-29); Chloride 105 mEq/L (98-107); Glucose 120 mg/dL (70-105); Osmolality,Calculated 286 (280-300); Potassium 3.9 mEq/L (3.5-5.1); Sodium 138 mEq/L (136-145); Troponin I < 0.03 ng/mL (< 0.04); eGFR For African Americans > 60 (> 60); eGFR For Non-African Americans > 60 (> 60)
[2019-03-02] MEDS ORDERED: *HR* HYDROcodone/Acet 5/325 mg TABLET PO PRN (13:52)
[2019-03-02] MEDS ORDERED: Ondansetron 4 MG/2 ML VIAL IVP PRN (13:52)
[2019-03-02] MEDS ORDERED: Naloxone 0.4 MG/ML INJ IVP PRN (13:52)
[2019-03-02] MEDS ORDERED: D5% in Water 1,000 ML IVC PRN (13:57)
[2019-03-02] MEDS ORDERED: Dextrose Gel 15 GM/37.5 ML TUBE PO PRN ×2 (13:57)
[2019-03-02] MEDS ORDERED: *HR* Dextrose 50 % in Water (Syg) 50 ML SYRINGE IVP PRN (13:57)
[2019-03-02] MEDS: *HR* Heparin 5,000 UNIT/ML VIAL SQ SCH ×2 (15:25→21:19)
[2019-03-02] MEDS ORDERED: Ringers Solution, Lactated 1,000 ML IVC SCH (15:30)
[2019-03-02] MEDS: Ipratropium/Albuterol Neb 3 ML IH SCH ×3 (15:57→23:32)
[2019-03-02] MEDS: MethylPREDNISolone 40 MG/ML VIAL IVP SCH (18:11)
[2019-03-02] MEDS: Insulin LISPRO 300 UNITS/3 ML VIAL SQ SCH (18:11)
[2019-03-02] MEDS: Budesonide/Formoterol 160/4.5 1 PUFF INH IH SCH (20:08)
[2019-03-02] MEDS ORDERED: Insulin DETEMIR 100 UNIT/ML X5UNITS SQ SCH (21:00)
[2019-03-03] MEDS: Ipratropium/Albuterol Neb 3 ML IH SCH ×3 (03:47→11:35)
[2019-03-03] MEDS: *HR* Heparin 5,000 UNIT/ML VIAL SQ SCH (06:19)
[2019-03-03] MEDS: MethylPREDNISolone 40 MG/ML VIAL IVP SCH (06:20)
[2019-03-03 06:37] LABS: Basophils % 0.2 %; Hematocrit 36.1 % (35.3-44.9); Hemoglobin 11.9 g/dL (11.5-15.4); Immature Granulocytes % 0.4 % (0-4); Lymphocytes # 1.1 K/mcL (0.6-4.6); Mean Corpuscular Hemoglobin 29.8 pg (28.0-33.3); Mean Corpuscular Volume 90.3 fL (83.0-100.0); Mean Platelet Volume 11.7 fL (9.4-12.4); Monocytes # 0.6 K/mcL (0.0-1.3); Monocytes % 7.2 %; Neutrophils # 6.7 K/mcL (1.6-8.9); Platelet Count 177 K/mcL (140-400); Red Cell Distribution Width 12.6 % (11.5-14.5); Segmented Neutrophils % 79.2 %; White Blood Count 8.5 K/mcL (4.3-11.1)
[2019-03-03 07:30] LABS: BUN/Creatinine Ratio 20 (6-26); Blood Urea Nitrogen 14 mg/dL (8-23); Calcium 9.1 mg/dL (8.6-10.3); Carbon Dioxide 28 mEq/L (23-29); Chloride 103 mEq/L (98-107); Glucose 129 mg/dL (70-105); Magnesium 1.1 mg/dL (1.6-2.6); Osmolality,Calculated 288 (280-300); Potassium 3.7 mEq/L (3.5-5.1); Sodium 138 mEq/L (136-145); eGFR For African Americans > 60 (> 60); eGFR For Non-African Americans > 60 (> 60)
[2019-03-03] MEDS: Budesonide/Formoterol 160/4.5 1 PUFF INH IH SCH (07:35)
[2019-03-03] MEDS: Insulin LISPRO 300 UNITS/3 ML VIAL SQ SCH ×2 (08:09→12:23)
[2019-03-03] MEDS ORDERED: FLUoxetine 20 MG CAPSULE PO SCH (09:00)
[2019-03-03] MEDS ORDERED: levoFLOXacin 750 MG/150 ML 750 MG/150 ML BAG IVPB SCH ×2 (09:00→11:30)
[2019-03-03] MEDS ORDERED: Aspirin Enteric Coated 81 MG Tablet PO SCH (09:00)
[2019-03-03] MEDS ORDERED: Cyanocobalamin (B-12) 1,000 MCG TABLET PO SCH (09:00)
[2019-03-03 11:28] VITALS: BP 135/69
[2019-03-04] MEDS ORDERED: levoFLOXacin 750 MG/150 ML 750 MG/150 ML BAG IVPB SCH (09:00)
== END 2019-03-03 13:37 | disposition home or self-care (01) ==
LOC: 3BNU 10:43 → EMEROOARM 10:43 → SUATTDRO 14:02 → 3BNU 15:25
PROVIDERS: ADMIT Internal Medicine; ATTEND Family Medicine

== ENCOUNTER 2020-11-06 08:35 | Observation (INO) ==
[2020-11-06] MEDS ORDERED: Ondansetron 4 MG/2 ML VIAL IVP ONE (08:58)
[2020-11-06] MEDS ORDERED: Ipratropium/Albuterol Neb 3 ML IH ONE (08:58)
[2020-11-06] MEDS ORDERED: methylPREDNISolone 125 MG/2 ML VIAL IVP ONE (08:58)
[2020-11-06] MEDS ORDERED: *HR* HYDROmorphone (PF) 1 MG/ML SYRINGE IVP ONE (08:59)
[2020-11-06] MEDS ORDERED: Isovue-370 500 ML BOTTLE IVP ONE (09:04)
[2020-11-06 09:24] LABS: Basophils % 0.3 %; Eosinophils # 0.2 K/mcL (0.0-0.6); Eosinophils % 1.8 %; Hematocrit 34.5 % (35.3-44.9); Immature Granulocytes % 0.2 % (0-4); Lymphocytes # 0.8 K/mcL (0.6-4.6); Lymphocytes % 9.1 %; Mean Corpuscular Volume 82.7 fL (83.0-100.0); Monocytes # 0.5 K/mcL (0.0-1.3); Monocytes % 5.3 %; Neutrophils # 7.5 K/mcL (1.6-8.9); Platelet Count 167 K/mcL (140-400); Red Blood Count 4.17 M/mcL (3.82-4.97); Red Cell Distribution Width 15.7 % (11.5-14.5); Segmented Neutrophils % 83.3 %; White Blood Count 8.9 K/mcL (4.3-11.1)
[2020-11-06 09:46] LABS: Albumin 4.2 g/dL (3.5-5.7); Albumin/Globulin Ratio 1.4 (1.1-2.2); Bilirubin,Direct 0.1 mg/dL (0.0-0.2); Bilirubin,Indirect 0.4 mg/dL (0.0-1.0); Bilirubin,Total 0.5 mg/dL (0.3-1.0); Total Protein 7.2 g/dL (6.4-8.9)
[2020-11-06 09:48] LABS: BUN/Creatinine Ratio 12 (6-26); Blood Urea Nitrogen 10 mg/dL (8-23); Calcium 9.3 mg/dL (8.6-10.3); Carbon Dioxide 29 mEq/L (23-29); Chloride 101 mEq/L (98-107); Glucose 139 mg/dL (70-105); Osmolality,Calculated 287 (280-300); Potassium 4.1 mEq/L (3.5-5.1); Sodium 138 mEq/L (136-145); eGFR For African Americans > 60 (> 60); eGFR For Non-African Americans > 60 (> 60)
[2020-11-06 09:49] LABS: Troponin I < 0.03 ng/mL (< 0.04)
[2020-11-06] MEDS ORDERED: levoFLOXacin 500 MG/100 ML 500 MG/100 ML BAG IVPB ONE (11:32)
[2020-11-06 11:56] LABS: Bacteria,Urine Few per hpf (None-Few); Bilirubin,Urine Negative (Negative); Blood,Urine Trace (Negative); Clarity,Urine Clear (Clear); Color,Urine Light-Yellow (Yellow); Glucose,Urine (UA) Normal (Normal); Ketones,Urine Negative (Negative); Leukocyte Esterase,Urine Small (Negative); Mucus,Urine Few per lpf (None-Few); Nitrite,Urine Negative (Negative); Protein,Urine Trace mg/dL (Neg-Trace); Specific Gravity,Urine > 1.030 (1.010-1.025); Squamous Epithelial Cell,Urine Few per hpf (None-Few); Urobilinogen,Urine Normal (Normal); WBC,Urine 0-3 per hpf (0-3)
[2020-11-06] MEDS ORDERED: Naloxone 0.4 MG/ML INJ IVP PRN (12:42)
[2020-11-06] MEDS ORDERED: *HR* Dextrose 50 % in Water (Vial) 50 ML VIAL IVP PRN (12:50)
[2020-11-06] MEDS ORDERED: D5% in Water 1,000 ML IVC PRN (12:50)
[2020-11-06] MEDS ORDERED: Dextrose Gel 15 GM/37.5 ML TUBE PO PRN ×2 (12:50)
[2020-11-06 14:07] LABS: Adenovirus Not Detected (Not Detect); Coronavirus 229E Not Detected (Not Detect); Coronavirus HKU1 Not Detected (Not Detect); Coronavirus NL63 Not Detected (Not Detect); Coronavirus OC43 Not Detected (Not Detect)
[2020-11-06 14:08] LABS: Bordetella Pertussis Not Detected (Not Detect); Chlamydophila pneumoniae Not Detected (Not Detect); Human Metapneumovirus Not Detected (Not Detect); Human Rhinovirus/Enterovirus Not Detected (Not Detect); Influenza A Subtype 2009 H1 Not Detected (Not Detect); Influenza B Not Detected (Not Detect); Mycoplasma pneumoniae Not Detected (Not Detect); Parainfluenza Virus 1 Not Detected (Not Detect); Parainfluenza Virus 2 Not Detected (Not Detect); Parainfluenza Virus 3 Not Detected (Not Detect); Parainfluenza Virus 4 Not Detected (Not Detect); Respiratory Syncytial Virus Not Detected (Not Detect); SARS-CoV-2 Not Detected (Not Detect)
[2020-11-06] MEDS: Ipratropium/Albuterol Neb 3 ML IH SCH ×2 (15:43→21:07)
[2020-11-06] MEDS: Insulin LISPRO 300 UNITS/3 ML VIAL SUBQ SCH (16:38)
[2020-11-06] MEDS: MethylPREDNISolone 40 MG/ML VIAL IVP SCH (16:39)
[2020-11-06] MEDS ORDERED: Acetaminophen 325 MG TABLET PO PRN (21:12)
[2020-11-06] MEDS: Gabapentin 300 MG CAPSULE PO SCH (23:13)
[2020-11-06] MEDS: Ondansetron 4 MG/2 ML VIAL IVP SCH (23:14)
[2020-11-07] MEDS: Ipratropium/Albuterol Neb 3 ML IH SCH ×4 (03:33→22:56)
[2020-11-07 03:45] LABS: Basophils % 0.1 %; Hematocrit 31.8 % (35.3-44.9); Hemoglobin 9.6 g/dL (11.5-15.4); Immature Granulocytes % 0.4 % (0-4); Lymphocytes # 0.7 K/mcL (0.6-4.6); Lymphocytes % 8.6 %; Mean Corpuscular HGB Conc 30.2 g/dL (31.6-35.5); Mean Corpuscular Hemoglobin 24.4 pg (28.0-33.3); Mean Corpuscular Volume 80.9 fL (83.0-100.0); Mean Platelet Volume 10.8 fL (9.4-12.4); Monocytes # 0.5 K/mcL (0.0-1.3); Neutrophils # 6.5 K/mcL (1.6-8.9); Platelet Count 172 K/mcL (140-400); Red Blood Count 3.93 M/mcL (3.82-4.97); Red Cell Distribution Width 15.2 % (11.5-14.5); Segmented Neutrophils % 83.9 %; White Blood Count 7.8 K/mcL (4.3-11.1)
[2020-11-07 03:57] LABS: BUN/Creatinine Ratio 20 (6-26); Blood Urea Nitrogen 18 mg/dL (8-23); Calcium 9.1 mg/dL (8.6-10.3); Carbon Dioxide 28 mEq/L (23-29); Chloride 101 mEq/L (98-107); Glucose 159 mg/dL (70-105); Osmolality,Calculated 285 (280-300); Potassium 4.6 mEq/L (3.5-5.1); Sodium 135 mEq/L (136-145); eGFR For African Americans > 60 (> 60); eGFR For Non-African Americans 59 (> 60)
[2020-11-07] MEDS: MethylPREDNISolone 40 MG/ML VIAL IVP SCH (05:50)
[2020-11-07] MEDS: Ondansetron 4 MG/2 ML VIAL IVP SCH ×3 (05:51→17:13)
[2020-11-07] MEDS: Insulin LISPRO 300 UNITS/3 ML VIAL SUBQ SCH ×3 (08:46→16:44)
[2020-11-07] MEDS: Gabapentin 300 MG CAPSULE PO SCH ×2 (09:11→20:28)
[2020-11-07] MEDS: cefTRIAXone 1,000 MG in Water for inj. (sterile) 10 ML IVP SCH (09:11)
[2020-11-07] MEDS ORDERED: Azithromycin 500 MG in 0.9 % Sodium Chloride 250 ML IVPB SCH (13:00)
[2020-11-07] MEDS: Budesonide/Formoterol 80/4.5 1 PUFF INH IH SCH (22:56)
[2020-11-08] MEDS: Ondansetron 4 MG/2 ML VIAL IVP SCH ×2 (01:29→06:03)
[2020-11-08] MEDS: Ipratropium/Albuterol Neb 3 ML IH SCH ×2 (03:56→10:23)
[2020-11-08 05:35] LABS: Basophils % 0.4 %; Eosinophils # 0.1 K/mcL (0.0-0.6); Eosinophils % 1.3 %; Hematocrit 33.7 % (35.3-44.9); Hemoglobin 9.9 g/dL (11.5-15.4); Immature Granulocytes % 0.3 % (0-4); Lymphocytes # 1.9 K/mcL (0.6-4.6); Lymphocytes % 18.6 %; Mean Corpuscular HGB Conc 29.4 g/dL (31.6-35.5); Mean Corpuscular Hemoglobin 24.3 pg (28.0-33.3); Mean Corpuscular Volume 82.6 fL (83.0-100.0); Mean Platelet Volume 11.5 fL (9.4-12.4); Monocytes # 0.9 K/mcL (0.0-1.3); Monocytes % 8.3 %; Neutrophils # 7.3 K/mcL (1.6-8.9); Platelet Count 169 K/mcL (140-400); Red Blood Count 4.08 M/mcL (3.82-4.97); Red Cell Distribution Width 15.6 % (11.5-14.5); Segmented Neutrophils % 71.1 %; White Blood Count 10.3 K/mcL (4.3-11.1)
[2020-11-08 05:57] LABS: Calcium 9.5 mg/dL (8.6-10.3); Potassium 4.1 mEq/L (3.5-5.1)
[2020-11-08] MEDS ORDERED: Menthol 1 EACH LOZENGE PO PRN (06:57)
[2020-11-08] MEDS: cefTRIAXone 1,000 MG in Water for inj. (sterile) 10 ML IVP SCH (07:31)
[2020-11-08] MEDS: Gabapentin 300 MG CAPSULE PO SCH (07:35)
[2020-11-08] MEDS: Insulin LISPRO 300 UNITS/3 ML VIAL SUBQ SCH (07:35)
[2020-11-08] MEDS ORDERED: predniSONE 20 MG TABLET PO SCH (09:00)
[2020-11-08] MEDS ORDERED: ALBUTEROL SULFATE IH SCH (09:00)
[2020-11-08] MEDS ORDERED: lisinopriL 20 MG TABLET PO SCH (09:00)
[2020-11-08] MEDS ORDERED: [UNRECOGNIZED DRUG - OTHER] IH SCH (09:00)
[2020-11-08] MEDS ORDERED: IPRATROPIUM IH SCH (09:00)
[2020-11-08] MEDS ORDERED: Aspirin 81 MG TAB.CHEW PO SCH (09:00)
[2020-11-08] MEDS ORDERED: FLUoxetine 20 MG CAPSULE PO SCH (09:00)
[2020-11-08] MEDS: Budesonide/Formoterol 80/4.5 1 PUFF INH IH SCH (10:23)
[2020-11-08 10:58] VITALS: BP 111/66
== END 2020-11-08 12:24 | disposition home or self-care (01) ==
LOC: EMEROOARM 08:35 → 3BNU 08:35 → SUATTDRO 12:13 → 3BNU 12:45
PROVIDERS: ADMIT Internal Medicine; ATTEND Registered Nurse